=== PATIENT | female | born 1995 | race Two or more races ===

== ENCOUNTER 2017-12-13 09:10 | Emergency (ER) | payer BC ==
--- NOTE | 2017-12-13 09:43 | EDM.PDOC ---
ED HPI GENERAL MEDICAL PROBLEM - General Chief Complaint: Chest Pain Stated Complaint: chest pain Time Seen by Provider: 12/13/17 09:13 Source of Information: Reports: Patient History Limitations: Reports: No Limitations - History of Present Illness INITIAL COMMENTS - FREE TEXT/NARRATIVE: Patient comes to ER complaining of intermittent chest pain. Points to epigastric area. Can be triggered by food/drinking. Better laying down. Can be more uncomfortable with sitting up. Comes and goes. No SOB/cough/wheezing. Present for several days. No history of similar complaints in past. Patient is 3 months and is due in May. First . Complains of fatigue over the past few weeks. HEENT negative. Some lightheadedness when she gets up at times. Resp negative Breathing does not make pain worse. Complains of constipation, this is chronic. No diarrhea. Says her stools looked dark/bloody today. Denies previous episodes of bloody stools. No changes. No neuro/musc-skel changes. Family history + for NIDDM No other acute changes/complaints. - Related Data Allergies Allergy/AdvReac Type Severity Reaction Status Date / Time No Known Allergies Allergy Verified 12/13/17 09:11 Home Meds: Home Meds Magnesium Citrate [Citrate of Magnesia] 296 ml PO ONETIME #1 solution 12/13/17 [ Rx] Past Medical History - Past Health History Medical/Surgical History: Denies Medical/Surgical History ED ROS GENERAL - Review of Systems Review Of Systems: See Below Constitutional: Reports: Fatigue. Denies: Fever, Chills, Malaise, Weakness, Night Sweats, Diaphoresis, Decreased Appetite HEENT: Reports: No Symptoms Respiratory: Reports: No Symptoms. Denies: Shortness of Breath, Wheezing, Pleuritic Chest Pain, Cough, Sputum, Hemoptysis Cardiovascular: Reports: Chest Pain (epigastric pain, non-radiating, just under Xyphoid process), Lightheadedness (sometimes when she gets up too fast). Denies : Claudication, Dyspnea on Exertion, Edema, Palpitations, Syncope GI/Abdominal: Reports: Abdominal Pain (epigastric pain, sometimes mid abdominal discomfort), Constipation (chronic), Hematochezia (Blood in stool today, not coffee colored but not bright red. Describes it as being a bit darker. ). Denies: Anorexia, Diarrhea, Decreased Appetite, Difficulty Swallowing, Distension, Hematemesis, Nausea, Vomiting : Reports: No Symptoms Musculoskeletal: Reports: No Symptoms Skin: Reports: No Symptoms Neurological: Reports: No Symptoms Psychiatric: Reports: No Symptoms Hematologic/Lymphatic: Reports: No Symptoms ED EXAM, GENERAL - Physical Exam Exam: See Below Exam Limited By: No Limitations General Appearance: Alert, WD/WN, No Apparent Distress, Obese Eye Exam: Bilateral Eye: EOMI, PERRL Ears: Normal External Exam, Normal Canal, Hearing Grossly Normal, Normal TMs Nose: Normal Inspection Throat/Mouth: Normal Inspection, Normal Lips, Normal Voice, No Airway Compromise Head: Atraumatic, Normocephalic Neck: Normal Inspection, Supple, Non-Tender, Full Range of Motion Respiratory/Chest: No Respiratory Distress, Lungs Clear, Normal Breath Sounds, No Accessory Muscle Use, Chest Non-Tender Cardiovascular: Normal Peripheral Pulses, Regular Rate, Rhythm, No Edema, No Murmur Peripheral Pulses: 2+: Radial (L), Radial (R) GI/Abdominal: Soft, No Distention, No Mass, Other (Bowel sounds decreased in all quadrants but still present. Mild discomfort with palpation of epigastrum and just above navel. No other tenderness noted during abdominal exam. No RUQ pain. ) (Female) Exam: Deferred Rectal (Female) Exam: Normal Rectal Tone, Heme + Stool. No: Hemorrhoids, Mass, Perirectal Abscess, Rectal Fissure, Tenderness Back Exam: Normal Inspection. No: CVA Tenderness (L), CVA Tenderness (R) Extremities: Normal Inspection, Normal Range of Motion, Non-Tender, No Pedal Edema, Normal Capillary Refill Neurological: Alert, Oriented, CN II-XII Intact, Normal Cognition, No Motor/ Sensory Deficits Psychiatric: Normal Affect, Normal Mood Skin Exam: Warm, Dry, Intact, Normal Color EKG INTERPRETATION EKG Date: 12/13/17 Time: 09:16 Rhythm: NSR Rate (Beats/Min): 75 [place]: Normal P-Wave: Present QRS: Normal ST-T: Normal QT: Normal Comparison: NA - No Prior EKG Course - Orders/Labs/Meds Orders: Active Orders 24 hr Category Date Time Status EKG Documentation Completion [RC] ASDIRECTED Care 12/13/17 09:13 Active H PYLORI STOOL ANTIGEN [MREF] Stat Lab 12/13/17 09:58 Uncollected UA W/MICROSCOPIC [URIN] Stat Lab 12/13/17 10:30 Uncollected EKG 12 Lead [EK] Stat Ther 12/13/17 09:13 Ordered Labs: Laboratory Tests 12/13/17 12/13/17 12/13/17 Range/Units 09:20 09:20 09:20 WBC 8.3 (4.0-10.2) K/uL RBC 4.20 (3.77-5.09) M/uL Hgb 12.1 (11.7-15.5) g/dL Hct 35.1 (34.0-46.0) % MCV 83.6 L (84.0-98.0) fL MCH 28.8 (28.2-33.3) pg MCHC 34.5 (31.7-36.0) g/dL RDW 13.1 (11.2-14.1) % Plt Count 212 (150-350) K/uL Neut % (Auto) 63.2 (45.0-80.0) % Lymph % (Auto) 27.4 (10.0-50.0) % [place] % (Auto) 8.4 (2.0-14.0) % Eos % (Auto) 0.8 (0.0-5.0) % Baso % (Auto) 0.2 (0.0-2.0) % Neut # (Auto) 5.22 (1.40-7.00) K/uL Lymph # (Auto) 2.26 (0.50-3.50) K/uL [place] # (Auto) 0.69 (0.00-1.00) K/uL Eos # (Auto) 0.07 (0.00-0.50) K/uL Baso # (Auto) 0.02 (0.00-0.20) K/uL D-Dimer, Quantitative 152 (0-400) ng/mL Sodium 137 (136-145) mmol/L Potassium 3.7 (3.5-5.1) mmol/L Chloride 103 (98-107) mmol/L Carbon Dioxide 23.8 (21.0-32.0) mmol/L BUN 8 (7-18) mg/dL Creatinine 0.56 (0.51-1.17) mg/dL Est Cr Clr Drug Dosing TNP Estimated GFR (MDRD) > 60 mL/min Glucose 85 (74-106) mg/dL Calcium 9.1 (8.5-10.1) mg/dL Total Bilirubin 0.6 (0.2-1.0) mg/dL AST 13 L (15-37) U/L ALT 22 (12-78) U/L Alkaline Phosphatase 51 (46-116) IU/L Creatine Kinase 38 (26-308) U/L Creatine Kinase Index 0.3 (0.0-2.5) % CK-MB (CK-2) 0.10 (0.00-3.60) ng/mL Troponin I 0.004 (0.000-0.056) ng/mL Total Protein 7.0 (6.4-8.2) g/dL Albumin 3.5 (3.4-5.0) g/dL Meds: Medications Discontinued Medications Generic Name Dose Route Start Last Admin Trade Name Freq PRN Reason Stop Dose Admin Al Hydroxide/Mg Hydroxide 30 ml 12/13/17 09:51 12/13/17 10:07 Gi Cocktail PO 12/13/17 09:52 30 ml ONETIME ONE Administration Sodium Chloride 1,000 mls @ 999 mls/hr 12/13/17 09:57 12/13/17 10:07 Normal Saline IV 12/13/17 10:57 999 mls/hr .BOLUS ONE Administration - Re-Assessments/Exams Free Text/Narrative Re-Assessment/Exam: 12/13/17 10:29 EKG, CBC, Chem, Troponin, DDimer, CKMB unremarkable. H Pylorie pending. Mildly + for occult blood, however no noted fissures/hemorrhoids/masses noted during rectal. Pain is triggered by food/drinking. May be related to patient's chronic constipation, as could be the occult blood. No changes in pain with GI cocktail. Cannot rule out other cause at this time, such as gastritis or ulcer. Plan at this time is to give IV fluid and treat for suspected constipation. Discuss[place] [facility] with plan. Patient is to follow up with either [facility] this [place] or with OBGyn at [place]. Will need to recheck her stools for bleeding. May need referral to GI if it continues. Heart Tones found, 185. Departure - Departure Time of Disposition: 11:30 Disposition: Home, Self-Care 01 Condition: Good Clinical Impression: Epigastric pain, Blood in the stool, First trimester - Discharge Information Prescriptions: Magnesium Citrate [Citrate of Magnesia] 296 ml PO ONETIME #1 solution Instructions: Abdominal Pain During , [id number], Constipation, Adult, Nonspecific Chest Pain, [id number], Magnesium Citrate oral solution Referrals: Arlene Reynaga PA [Primary Care Provider] - Forms: ED Department Discharge Additional Instructions: As discussed, we would like to see if your constipation is why you are having your discomfort today. Drink one bottle of Magnesium Citrate when you get home. This will promote a pretty thorough series of bowel movements, usually within 4-6 hours. It may get a bit crampy. Ok to take Tylenol. See if your pain persists afterwards. If it does, then this is less likely linked to constipation. Make an appointment to go to see either your OBGyn provider, or Arlene Reynaga here at [facility]. When you call for the appointment, tell them you were in the ER for this pain. Tell them also that your stool sample was positive for some blood. You will need to have your stool rechecked to see if the bleeding continues. Often you will check once a day over three days, and will be given 3 kits from your provider. If bleeding continues, you may need referral to see a GI specialist. Your labs today were normal. Consider giving up gluten/wheat for one month to see if that helps your chronic constipation. Follow up as needed otherwise if you have sudden worsening problems. - My Orders Last 24 Hours: My Active Orders 12/13/17 09:13 EKG Documentation Completion [RC] ASDIRECTED EKG 12 Lead [EK] Stat 12/13/17 09:58 H PYLORI STOOL ANTIGEN [MREF] Stat 12/13/17 10:30 UA W/MICROSCOPIC [URIN] Stat - Assessment/Plan Last 24 Hours: My Active Orders 12/13/17 09:13 EKG Documentation Completion [RC] ASDIRECTED EKG 12 Lead [EK] Stat 12/13/17 09:58 H PYLORI STOOL ANTIGEN [MREF] Stat 12/13/17 10:30 UA W/MICROSCOPIC [URIN] Stat
[2017-12-13] MEDS ORDERED: GI Cocktail Oral Solution 30 ML PO ONE (09:51)
[2017-12-13] MEDS ORDERED: Sodium Chloride 0.9% 1,000 ML IV ONE (09:57)
[2017-12-13 10:01] LABS: CHLORIDE,CL 103 mmol/L (98-107); SODIUM,NA 137 mmol/L (136-145)
== END 2017-12-13 12:00 | disposition home or self-care (01) ==
LOC: LL.ED 09:10
DX: O99.89 Other specified diseases and conditions complicating pregnancy, childbirth and the puerperium (principal); R10.13 Epigastric pain; O99.611 Diseases of the digestive system complicating pregnancy, first trimester; K92.1 Melena
CPT/HCPCS: 36415; 80053; 82272; 82550; 82553; 84484; 85025; 85379; 93005; 96360; 99285; A9270; J7030